=== PATIENT | female | born 1990 | race Caucasian/White ===

== ENCOUNTER → 2018-03-22 10:42 | Outpatient (CLI) | payer OTHER, SELFPAY ==
--- NOTE | 2018-03-22 11:02 | DI.US.S_ITS ---
Patient Name: RICKY RIDDLE date: 1990 Sex: F Attending Physician: Hugh Indications: Date: 03/22/2018 10:55 At the request of: KAI HOOPER Procedure: US breast RT limited ULTRASOUND OF RIGHT BREAST: 03/22/2018 CLINICAL: Patient reports a palpable breast lump but cannot remember where the lump is, per paster hat lining. No prior exams were available for comparison. Real-time and Doppler ultrasound of the right breast were performed. Campbell scale images of the real-time examination were reviewed. Per programs director, the patient is unable to localize where her palpable lump is within her right breast at the time of the exam. A limited survey of the right breast by ultrasound did not demonstrate any focal abnormality. IMPRESSION: NEGATIVE Per programs director, the patient is unable to localize where her palpable lump is within her right breast at the time of the exam. A limited survey of the right breast by ultrasound did not demonstrate any focal abnormality. While no sonographic findings of malignancy were identified, this does not represent a complete evaluation of the right breast. Clinical follow-up recommended for management of the patient's reported symptoms. Consider breast MRI if there is continued clinical concern for breast pathology. The patient was advised to return for reevaluation if she notices anything grow or change in the future. Annual screening mammography beginning at age 40 recommended. This exam was interpreted at Station ID: [id number]. Electronically Signed By: Parker Wray M.D. ecl/:03/22/2018 19:44:31 letter sent: Clinical Evaluation Ultrasound BI-RADS: 1 Negative
== END ==
PROVIDERS: PCP Family Medicine; Visit Provider Family Medicine
DX: N63.10 Unspecified lump in the right breast, unspecified quadrant (principal)
CPT/HCPCS: 76642

== ENCOUNTER → 2018-10-03 07:39 | Outpatient (CLI) | payer OTHER, SELFPAY ==
--- NOTE | 2018-10-03 | DI.US.S_ITS ---
PROCEDURE: US OB <= 14 WEEKS FETUS INDICATIONS: SIZE AND DATES OUTSIDE/PRIOR DATING DATA: Last menstrual period (LMP): 08/12/19. LMP-based estimated date of delivery (JULIA): 05/19/19. First dating scan (date and location): 10/03/18. Estimated date of delivery (JULIA) from first dating scan: 05/26/19. TECHNIQUE: Real-time scanning was performed of the fetus and maternal pelvic organs, with image documentation. Endovaginal scanning was also performed to better visualize the fetus and maternal ovaries. COMPARISON: None. FINDINGS: Embryo: [place]-rump length measures 7 mm corresponding to 6 weeks 3 days. Heart rate measures 124 beats per minute. Measurement variability in dating: +/- 4 weeks by LMP, +/- 7 days by mean sac diameter (use before 6 weeks gestation if crown-rump length not able to be measured), +/- 5 days by crown-rump length (up to 8 weeks 6 days gestation), +/- 7 days by crown-rump length (up to 13 weeks 6 days gestation). Maternal organs: Ovaries within normal limits, with a corpus luteal cyst measuring roughly 27 mm. Limited images through the kidneys demonstrate no hydronephrosis. IMPRESSION: 6 week 3 day single living IUP. Dictated by: Panda Barney [facility] Interpreted: Brian Vaughan MD on 10/03/2018 at 9:42 Approved by: Brian Vaughan M.D. on 10/04/2018 at 8:11
== END ==
PROVIDERS: PCP Family Medicine; Visit Provider Family Medicine
DX: Z34.91 Encounter for supervision of normal pregnancy, unspecified, first trimester (principal); Z3A.01 Less than 8 weeks gestation of pregnancy
CPT/HCPCS: 76801; 76817

== ENCOUNTER 2018-10-21 21:04 | Emergency (ER) | payer OTHER, MEDICAID, SELFPAY ==
[2018-10-21 21:31] VITALS: BP 113/80; PULSE 89; RESP 18; TEMP 37.1; O2SAT 99
--- NOTE | 2018-10-21 21:35 | DI.US.S_ITS ---
PROCEDURE: US OB <= 14 WEEKS FETUS INDICATIONS: RIGHT SIDE PAIN OUTSIDE/PRIOR DATING DATA: Last menstrual period (LMP): 08/12/19. LMP-based estimated date of delivery (JULIA): 05/19/19. First dating scan (date and location): 10/03/18. Estimated date of delivery (JULIA) from first dating scan: 05/26/19. TECHNIQUE: Real-time scanning was performed of the fetus and maternal pelvic organs, with image documentation. Endovaginal scanning was also performed to better visualize the fetus and maternal ovaries. COMPARISON: [facility], , OB <= 14 WEEKS FETUS, 10/03/2018, 8:03. FINDINGS: Embryo: There is a single intrauterine redemonstrated with a gestational sac, yolk sac, and pole. The common flank measures 2.7 cm corresponding to gestational age of 9 weeks 3 days. heart motion is demonstrated with a rate of 185 beats per minute. No perigestational fluid collections identified. Measurement variability in dating: +/- 4 weeks by LMP, +/- 7 days by mean sac diameter (use before 6 weeks gestation if crown-rump length not able to be measured), +/- 5 days by crown-rump length (up to 8 weeks 6 days gestation), +/- 7 days by crown-rump length (up to 13 weeks 6 days gestation). Maternal organs: The right ovary appears within normal limits. The left ovary was not visualized. Limited images through the kidneys demonstrate no hydronephrosis. IMPRESSION: 1. Single living intrauterine with a calculated gestational age of 9 weeks 3 days. 2. heart motion demonstrated with slightly elevated heart rate of 185 beats per minute. Dictated by: Hans Eden M.D. on 10/22/2018 at 13:23 Approved by: Hans Eden M.D. on 10/22/2018 at 13:26
--- NOTE | 2018-10-21 21:35 | DI.US.S_ITS ---
PROCEDURE: US ABDOMEN LIMITED INDICATIONS: RIGHT SIDE PAIN TECHNIQUE: Real-time focused scanning was performed of the right upper quadrant, with image documentation. COMPARISON: [facility], US, ABDOMEN COMPLETE, 04/22/2017, 4:56. FINDINGS: There is increased hepatic echogenicity compatible with steatosis. No definite focal hepatic lesions. Gallbladder surgically absent. The left common hepatic duct is normal in caliber measuring up to 6 mm. IMPRESSION: 1. Limited study demonstrates no definite biliary duct dilatation. 2. Increased hepatic echogenicity compatible with steatosis. Dictated by: Hans Eden M.D. on 10/22/2018 at 13:21 Approved by: Hans Eden M.D. on 10/22/2018 at 13:22
[2018-10-21 22:06] LABS: Add Manual Diff / Slide Review NO; Basophils Absolute Auto 100 /uL (0-100); Basophils Percent Auto 0.5 % (0-2); Eosinophils Absolute Auto 200 /uL (0-450); Eosinophils Percent Auto 1.2 % (2-4); Hematocrit 37.3 % (36-46); Hemoglobin 12.3 g/dL (12.0-16.0); Lymphocytes Absolute Auto 3400 /uL (1100-4500); Lymphocytes Percent Auto 26.5 % (25-40); Mean Corpuscular HGB Conc 32.9 % (30-36); Mean Corpuscular Hemoglobin 27.5 PG (26-34); Mean Corpuscular Volume 83.6 fL (80-100); Monocytes Absolute Auto 800 /uL (0-900); Monocytes Percent Auto 6.1 % (3-14); Neutrophils Absolute Auto 8500 /uL (1500-7000); Neutrophils Percent Auto 65.7 % (50-75); Platelet Count 275 X10^3/uL (150-400); Red Blood Cell Count 4.47 X10^6/uL (4.0-5.2); Red Cell Distribution Width 14.3 % (11.6-14.8); White Blood Cell Count 12.9 X10^3/uL (4.5-11.0)
[2018-10-21 22:13] LABS: Alanine Aminotransferase 23 IU/L (9-52); Albumin 4.5 g/dL (3.5-5.0); Albumin Globulin Ratio 1.2 (1.0-2.8); Alkaline Phosphatase 53 U/L (38-126); Aspartate Aminotransferase 21 IU/L (14-36); Bilirubin Total 0.3 mg/dL (0.2-1.3); Blood Urea Nitrogen 15 mg/dL (7-17); Calcium 9.5 mg/dL (8.4-10.2); Carbon Dioxide 22 mmol/L (22-32); Chloride 102 mmol/L (98-107); Estimated Glomerular Filt Rate > 60.0 mL/min (>60); Globulin 3.9 g/dL (1.7-4.1); Glucose 92 mg/dL (70-100); HEMOLYSIS < 15 (0-50); Lipase 67 U/L (23-300); Sodium 137 mmol/L (137-145); Total Protein 8.4 g/dL (6.3-8.2)
[2018-10-21 22:30] LABS: HCG Quantitative /Beta subunit 51704 mIU/mL
[2018-10-21 23:41] VITALS: PULSE 81; O2SAT 97
[2018-10-22 01:34] VITALS: BP 109/62; PULSE 85; RESP 16; O2SAT 97
--- NOTE | 2018-10-22 01:50 | ED.ABDPAIN ---
HPI - Abdominal Pain General Chief Complaint: Abdominal Pain Stated Complaint: 9wks preg right side abdominal pain Time Seen by Provider: 10/22/18 01:50 Source: patient Mode of arrival: ambulatory Limitations: no limitations History of Present Illness HPI narrative: The patient is approximately 9 weeks . She has previously undergone cholecystectomy. She developed right upper abdominal pain today. She has mild nausea, no emesis. She has been eating and drinking well. She has normal urine output, with no dysuria. She has no back pain, no fever or chills. She has no vaginal bleeding or vaginal discharge. She denies cough, chest discomfort, or fever or chills. Related Data Home Medications Medication Instructions Recorded Confirmed ondansetron HCl [Zofran] 4 mg PO Q4HP PRN #0 04/22/17 oxycodone-acetaminophen [Percocet] 1 - 2 tab PO Q4HP PRN #0 04/22/17 Previous Rx's Medication Instructions Recorded docusate sodium 250 mg PO QDAY #30 cap 03/05/17 ibuprofen 600 mg PO Q6HP PRN #60 tab 03/05/17 Allergies Allergy/AdvReac Type Severity Reaction Status Date / Time hydrocodone [HYDROCODONE] AdvReac Unknown GI UPSET Verified 10/21/18 21:35 Review of Systems Review of Systems ROS Unobtainable: All systems reviewed & are unremarkable except as noted in HPI and below Constitutional Denies chills, Denies fever(s), Denies lethargy and Denies weakness Cardiovascular Denies chest pain, Denies irregular heart rhythm, Denies lightheadedness, Denies palpitations, Denies dyspnea, Denies dyspnea on exertion and Denies orthopnea Respiratory Denies cough, Denies dyspnea, Denies dyspnea on exertion and Denies wheezing Gastrointestinal Gastrointestinal: Reports abdominal pain ( Right upper quadrant), Denies change in bowel habits, Denies diarrhea, Denies nausea and Denies vomiting Genitourinary Denies dysuria Musculoskeletal Denies back pain Integumentary/Breasts Denies rash Neurologic Denies focal weakness and Denies weakness Endocrine Denies palpitations Allergic/Immunologic Denies wheezing PFSH Medical History No chronic problems (Acute) Surgical History Status post cholecystectomy (Acute) Social History Smoking Status: Never smoker Social History Smoking Status: Never smoker Exam Initial Vital Signs Initial Vital Signs: Vital Signs Temperature 98.8 F 10/21/18 21:31 Pulse Rate 89 10/21/18 21:31 Respiratory Rate 18 10/21/18 21:31 Blood Pressure 113/80 10/21/18 21:31 Pulse Oximetry 99 10/21/18 21:31 Const General: cooperative and well developed Nutritional Appearance: well nourished Orientation: alert, awake, oriented x3 and not confused HENMT Face and sinus: normal facial exam Mouth: oral mucosae normal Chest Chest: No tenderness Resp Effort & Inspection: normal respiratory effort and able to speak in complete sentences Auscultation: clear to auscultation bilaterally, no rales, no rhonchi and no wheezes Cardio Rate: regular rate Rhythm: regular rhythm Heart Sounds: no click, no gallops, no murmurs and no rubs Pulses: normal peripheral pulses GI Inspection: non-distended Palpation: soft, no hepatosplenomegaly and tender ( RUQ tenderness without guarding or rebound. No palpable masses.) Auscultation: normal bowel sounds Back/Spine/Pelvis Back: No CVA tenderness Skin General: no rashes or lesions noted and No jaundice Neuro General: alert, oriented x3 and no focal motor deficits Speech: speech normal Extrem General: full ROM, no pedal edema and no calf tenderness Course Orders Ordered: ED Orders 10/21/18 21:35 US OB <= 14 weeks fetus Stat US abdomen limited Stat 10/21/18 21:49 ABO RH Type Stat Complete Blood Count AUTO DIFF Stat Comprehensive Metabolic Panel Stat HCG Quantitative Stat Lipase Stat Discontinued Medications Al Hydrox/Mg Hydrox/Simethicone 20 ml/ Lidocaine HCl 15 ml 0 ml PO NOW ONE Stop: 10/22/18 01:59 Vital Signs - 8 hr 10/21/18 21:31 10/21/18 23:41 10/22/18 01:34 Temperature 98.8 F Pulse Rate 89 81 85 Respiratory Rate 18 16 Blood Pressure 113/80 Blood Pressure [Right Arm] 109/62 Pulse Oximetry 99 97 97 MDM - Abdominal Pain Lab Data Result diagrams: 10/21/18 21:49 10/21/18 21:49 Lab Results 02/16/19 02/16/19 02/16/19 Range/Units 21:49 21:49 21:49 WBC 12.9 H (4.5-11.0) X10^3/uL RBC 4.47 (4.0-5.2) X10^6/uL Hgb 12.3 (12.0-16.0) g/dL Hct 37.3 (36-46) % MCV 83.6 (80-100) fL MCH 27.5 (26-34) PG MCHC 32.9 (30-36) % RDW 14.3 (11.6-14.8) % Plt Count 275 (150-400) X10^3/uL Neut % (Auto) 65.7 (50-75) % Lymph % (Auto) 26.5 (25-40) % [place] % (Auto) 6.1 (3-14) % Eos % (Auto) 1.2 L (2-4) % Baso % (Auto) 0.5 (0-2) % Neut # (Auto) 8500 H (3618-9129) /uL Lymph # (Auto) 3400 (8073-0138) /uL [place] # (Auto) 800 (0-900) /uL Eos # (Auto) 200 (0-450) /uL Baso # (Auto) 100 (0-100) /uL Sodium 137 (137-145) mmol/L Potassium 4.0 (3.4-5.1) mmol/L Chloride 102 (98-107) mmol/L Carbon Dioxide 22 (22-32) mmol/L BUN 15 (7-17) mg/dL Creatinine 0.60 (0.52-1.04) mg/dL Estimated GFR > 60.0 (>60) mL/min BUN/Creatinine Ratio 25.0 H (6-22) Glucose 92 (70-100) mg/dL Calcium 9.5 (8.4-10.2) mg/dL Total Bilirubin 0.3 (0.2-1.3) mg/dL AST 21 (14-36) IU/L ALT 23 (9-52) IU/L Alkaline Phosphatase 53 (38-126) U/L Total Protein 8.4 H (6.3-8.2) g/dL Albumin 4.5 (3.5-5.0) g/dL Globulin 3.9 (1.7-4.1) g/dL Albumin/Globulin Ratio 1.2 (1.0-2.8) Lipase 67 (23-300) U/L HCG, Quant 71575 mIU/mL Blood Type O Positive Point of care testing: Urine Dip Bedside Urine Glucose Negative Bedside Urine Bilirubin - Negative Bedside Urine Ketone +/- 5 Urine Specific [place] 1.025 Bedside Urine Occult Blood - Negative Bedside Urine pH 5.5 Bedside Urine Protein +/- 15 Bedside Urine Urobilinogen - Negative Bedside Urine Nitrite - Negative Bedside Urine Leukocytes - Negative Esterase Imaging Data Abdominal ultrasound:: Radiologist's impression: Hepatic steatosis, no acute findings. She is status post cholecystectomy. OB ultrasound: Radiologist's impression: single living intrauterine at 9 +3 weeks. Tachycardia rate 185. No emily-gestational bleeding. Normal blood flow to the right RA, the left ovary is not visualized. Discharge Plan Departure Patient Disposition: Home Clinical Impression: Abdominal pain during Qualifiers: Trimester: first trimester Qualified Code(s): O26.891 - Other specified related conditions, first trimester Instructions: Common Discomforts and Bodily Changes During Activity Restrictions/Additional Instructions: The baby is well on ultrasound. Ultrasound of the abdomen as well as blood studies are normal. He noted that the pain changes as you move around, I think this is a strain along her abdominal wall. Take Tylenol as needed for pain. If you are worse return the ER, recheck with her doctor next week if the discomfort persists. Prescriptions: No Action docusate sodium 250 MG capsule 250 mg PO QDAY Qty: 30 RF: 1 ibuprofen 600 MG tablet 600 mg PO Q6HP PRNQty: 60 RF: 1 oxycodone-acetaminophen [Percocet] 5 MG/325 MG tablet 1 - 2 tab PO Q4HP PRNQty: 0 RF: 0 ondansetron HCl [Zofran] 8 MG tablet 4 mg PO Q4HP PRNQty: 0 RF: 0 Referrals: Kamryn Reese MD [Primary Care Provider] -
[2018-10-22 03:26] VITALS: BP 112/64; PULSE 92; RESP 16; TEMP 36.9; O2SAT 98
== END 2018-10-22 03:27 | disposition home or self-care (01) ==
PROVIDERS: Emergency Provider Emergency Medicine; PCP Family Medicine
DX: O26.891 Other specified pregnancy related conditions, first trimester (principal); R10.9 Unspecified abdominal pain; Z3A.09 9 weeks gestation of pregnancy
CPT/HCPCS: 36415; 76705; 76801; 76817; 80053; 81003; 83690; 84702; 85025; 86900; 86901; 99283; 99284

== ENCOUNTER → 2019-01-05 15:03 | Outpatient (CLI) | payer OTHER, MEDICAID, SELFPAY ==
--- NOTE | 2019-01-05 | DI.US.S_ITS ---
PROCEDURE: US OB >= 14 WEEKS FETUS INDICATIONS: 20 WEEK ANATOMICAL SURVEY OUTSIDE/PRIOR DATING DATA: Last menstrual period (LMP): 08/12/19. LMP-based estimated date of delivery (JULIA): 05/19/19. First dating scan (date and location): 10/03/18, [facility]. Estimated date of delivery (JULIA) from first dating scan: 05/26/19. TECHNIQUE: Real-time scanning was performed of the fetus, with image documentation and biometric measurements. Endovaginal scanning: Not performed COMPARISON: None. FINDINGS: General: A single living intrauterine gestation is present. Presentation: Breech. Placenta: Placental position is posterior, without previa. Lower placental edge 2 cm or less from internal cervical os qualifies as low lying placenta. Amniotic fluid index: 11.8 cm, normal range is 5-24 cm. heart rate: 144 beats per minute. Maternal cervical canal: 4.2 cm long. Normal lower limit is 2.5 cm. biometrics: Biparietal diameter: 5.0 cm, 21 weeks, one day Head circumference: 19.0 cm, 21 weeks, 2 days Abdominal circumference: 16.8 cm, 21 weeks, 5 days Femur length: 3.3 cm, 20 weeks, 3 days Estimated gestational age from initial scan: 19 weeks, 6 days Composite gestational age from present scan: 21 weeks, 3 days Estimated weight and percentile: 403 g, 98 percentile Measurement variability for biometric dating: +/- 7 days from 14 weeks to 15 weeks 6 days gestation, +/- 10 days from 16 weeks to 21 weeks 6 days gestation, +/- 2 weeks from 22 weeks to 27 weeks 6 days gestation, +/- 3 weeks for 28 weeks gestation or later. weight reference: 4500 g or EFW >90/95% is considered macrosomia or large for gestational age. EFW <10% is small for gestational age. EFW 5% or less is considered intra-uterine growth restriction. Anatomic survey: Neuro: Ventricles are non-dilated at less than 10 mm. Cisterna magna is normal at 3-11 mm. Cerebellum is normal in size and morphology. Nuchal skin fold: Normal at less than 6 mm between 14-21 weeks gestational age. Face: Nose and lips, facial profile are normal. Spine: No evidence for spina bifida. Heart: 4-chambered heart is present, with normal ventricular outflow tracts. Diaphragm: Diaphragm is intact. Stomach: Left-sided stomach is present. Kidneys: No hydronephrosis. Normal is less than 5 mm in 2nd trimester, less than 7 mm in 3rd trimester. Cord: 3-vessel cord has orthotopic insertion. Bladder: Normal in size. Extremities: All 4 extremities identified. IMPRESSION: 1. Single live gestation with a composite gestational age of 21 weeks, 3 days which is concordant with dates by initial scan. 2. Estimated weight of 98 percentile. Developing macrosomia cannot be excluded. 3. No sonographic anatomic abnormalities. Of note, the lateral ventricle is the upper limits of normal for size. Dictated by: Trang Cueto M.D. on 01/05/2019 at 17:56 Approved by: Trang Cueto M.D. on 01/05/2019 at 18:01
== END ==
PROVIDERS: PCP Family Medicine; Visit Provider Family Medicine
DX: Z36.89 Encounter for other specified antenatal screening (principal); Z3A.21 21 weeks gestation of pregnancy
CPT/HCPCS: 76811

== ENCOUNTER → 2019-02-05 09:17 | Outpatient (CLI) | payer OTHER, MEDICAID, SELFPAY ==
--- NOTE | 2019-02-05 | DI.US.S_ITS ---
PROCEDURE: US OB LIMITED INDICATIONS: LOW LYING PLACENTA OUTSIDE/PRIOR DATING DATA: Last menstrual period (LMP): 08/12/19. LMP-based estimated date of delivery (JULIA): 05/19/19. First dating scan (date and location): 10/03/18. Estimated date of delivery (JULIA) from first dating scan: 05/26/19. TECHNIQUE: Real-time scanning was performed of the fetus, with image documentation and biometric measurements. Endovaginal scanning: No COMPARISON: [facility], [facility], 02/16/2017, 8:53. FINDINGS: General: A single living intrauterine gestation is present. Presentation: Breech. Placenta: Placental position is posterior. Persistent lower uterine segment contraction. Amniotic fluid index: 15.2cm, normal range is 5-24 cm. heart rate: 155 beats per minute. Maternal cervical canal: 3.9 cm long. Normal lower limit is 2.5 cm. biometrics: Biparietal diameter: 26 weeks 1 day Head circumference: 26 weeks 6 days Abdominal circumference: 27 weeks 3 days Femur length: 25 weeks 4 days Estimated gestational age from initial scan: 24 weeks 2 days Composite gestational age from present scan: 26 weeks 2 days Estimated weight and percentile: 958 g; slightly greater than the 95th percentile Measurement variability for biometric dating: +/- 7 days from 14 weeks to 15 weeks 6 days gestation, +/- 10 days from 16 weeks to 21 weeks 6 days gestation, +/- 2 weeks from 22 weeks to 27 weeks 6 days gestation, +/- 3 weeks for 28 weeks gestation or later. weight reference: 4500 g or EFW >90/95% is considered macrosomia or large for gestational age. EFW <10% is small for gestational age. EFW 5% or less is considered intra-uterine growth restriction. Other: Normal lateral ventricle measures 6.0 mm. Renal pelves prominent bilaterally measuring 5.0 mm. IMPRESSION: 1. Single living IUP redemonstrated and estimated weight is greater than the 95th percentile. Early developing macrosomia cannot be excluded and followup is recommended. 2. Normal diameter of the lateral ventricle measures 6.0 mm at 3. Mild renal pyelectasis. Followup recommended. 4. Persistent lower uterine segment contraction and the cervix as well as inferior margin of the placenta is not well seen. Followup recommended. Dictated by: Panda DOLL Interpreted: Brian Vaughan MD on 02/05/2019 at 10:29 Approved by: Brian Vaughan M.D. on 02/05/2019 at 14:46
== END ==
PROVIDERS: PCP Family Medicine; Visit Provider Family Medicine
DX: O44.42 Low lying placenta NOS or without hemorrhage, second trimester (principal); Z3A.26 26 weeks gestation of pregnancy
CPT/HCPCS: 76815

== ENCOUNTER 2019-04-08 22:23 | Outpatient (CLI) | payer OTHER, MEDICAID, SELFPAY ==
[2019-04-08 23:02] LABS: Bacteria Urine None Seen; RBC Urine None Seen (0-5/HPF)
[2019-04-08 23:03] LABS: Appearance Urine UA CLOUDY; Bilirubin Urine UA NEGATIVE (NEGATIVE); Color Urine UA YELLOW; Glucose Urine UA NEGATIVE (Negative); Ketones Urine UA NEGATIVE (NEGATIVE); Leukocyte Esterase Urine UA 2+ (NEGATIVE); Nitrite Urine UA NEGATIVE (Negative); Occult Blood Urine UA NEGATIVE (Negative); Protein Urine UA NEGATIVE (Negative); Specific Gravity Urine UA 1.015 (1.000-1.035); Urobilinogen Urine UA 0.2 E.U./dL (0.2); pH Urine UA 6.5 (4.5-8.0)
[2019-04-08 23:09] LABS: Amorphous Sediment Urine 2+; Culture Indicated Urine Cult Not Indicated; Squamous Epithelial Cell Urine 5-10 /HPF (0-5/HPF); WBC Urine 5-10/HPF (0-5/HPF)
== END 2019-04-08 23:43 | disposition home or self-care (01) ==
LOC: OB 04-12 12:03
PROVIDERS: PCP Family Medicine; Visit Provider Family Medicine
DX: O60.03 Preterm labor without delivery, third trimester (principal); Z3A.33 33 weeks gestation of pregnancy
CPT/HCPCS: 59025; 81001; 84112; 87077; 87086; 87147; G0378; G0379

== ENCOUNTER → 2019-04-27 12:35 | Outpatient (ROUT) | payer OTHER, MEDICAID, SELFPAY | PROVIDERS: PCP Family Medicine; Visit Provider Family Medicine | DX: Z34.80 Encounter for supervision of other normal pregnancy, unspecified trimester (principal) | CPT/HCPCS: 87081; 87147 ==

== ENCOUNTER → 2019-05-11 09:33 | Outpatient (CLI) | payer OTHER, MEDICAID, SELFPAY ==
--- NOTE | 2019-05-11 | DI.US.S_ITS ---
PROCEDURE: US OB LIMITED INDICATIONS: size greater than dates OUTSIDE/PRIOR DATING DATA: Last menstrual period (LMP): 08/12/19. LMP-based estimated date of delivery (JULIA): 05/19/19. First dating scan (date and location): 10/03/18. Estimated date of delivery (JULIA) from first dating scan: 05/26/2019. TECHNIQUE: Real-time scanning was performed of the fetus, with image documentation and biometric measurements. Endovaginal scanning: Not performed COMPARISON: [facility], OB LIMITED, 02/05/2019, 9:26. FINDINGS: General: A single living intrauterine gestation is present. Presentation: Vertex Placenta: Placental position is posterior, without previa. Lower placental edge 2 cm or less from internal cervical os qualifies as low lying placenta. Amniotic fluid index: 19 cm, normal range is 5-24 cm. the largest vertical fluid pocket measured 5.2 cm. heart rate: 157 beats per minute. Maternal cervical canal: Maternal cervical length was not able to be measured due to advanced gestational age in vertex presentation of the fetus. biometrics: Biparietal diameter: 10.0 cm correlating with 41 weeks and 0 days. Head circumference: 36.59 cm Abdominal circumference: 38.26 cm Femur length: 7.68 cm, correlating with 39 weeks and 2 days. Estimated gestational age from initial scan: not applicable. Composite gestational age from present scan: 40 weeks and 1 day. Estimated weight and percentile: 4475 g Other: There is mild scrotal edema with small bilateral hydroceles. There is also prominence of the right renal pelvis measuring approximately 8 mm. No len hydronephrosis. IMPRESSION: 1. Single living intrauterine gestation with estimated gestational age of approximately 40 weeks and 1 day. Estimated weight is 4475 g. weight reference: 4500 g or EFW >90/95% is considered macrosomia or large for gestational age. EFW <10% is small for gestational age. EFW 5% or less is considered intra-uterine growth restriction. 2. The 4 quadrant HERNAN measures within normal limits at 19 cm with the largest vertical fluid pocket measuring 5.2 cm. 3. Mild prominence of the left renal pelvis measuring 8 mm in maximum AP dimension. No hydronephrosis. Recommend followup renal ultrasound sometime between 48 hours after to one month of age. A second ultrasound to be considered between 1-6 months of age. 4. Mild scrotal edema with small bilateral hydroceles. Dictated by: Vinny Sheridan M.D. on 05/11/2019 at 10:28 Approved by: Vinny Sheridan M.D. on 05/11/2019 at 10:47
== END ==
PROVIDERS: PCP Family Medicine; Visit Provider Family Medicine
DX: O36.63X0 Maternal care for excessive fetal growth, third trimester, not applicable or unspecified (principal); Z3A.40 40 weeks gestation of pregnancy
CPT/HCPCS: 76815

== ENCOUNTER → 2019-05-16 19:11 | Outpatient (ROUT) | payer OTHER, MEDICAID, SELFPAY | PROVIDERS: PCP Family Medicine; Visit Provider Family Medicine | DX: N39.0 Urinary tract infection, site not specified (principal) | CPT/HCPCS: 87086 ==

== ENCOUNTER 2019-05-17 00:18 | Observation (INO) | payer OTHER, MEDICAID, SELFPAY | END 2019-05-17 02:35 | disposition home or self-care (01) | LOC: LABOR 00:21 | PROVIDERS: Admitting Provider Family Medicine; PCP Family Medicine; Visit Provider Family Medicine | DX: O47.1 False labor at or after 37 completed weeks of gestation (principal); Z3A.38 38 weeks gestation of pregnancy | CPT/HCPCS: 59025; 59050; G0378; G0379 ==

== ENCOUNTER 2019-05-21 06:38 | Inpatient (IN) | payer OTHER, MEDICAID, SELFPAY ==
[2019-05-21] MEDS: PENICILLIN G POTASSIUM 5,000,000 UNIT in DEXTROSE 5% IN WATER 250 ML IV (07:45)
[2019-05-21 07:47] LABS: Add Manual Diff / Slide Review NO; Basophils Absolute Auto 0 /uL (0-100); Basophils Percent Auto 0.4 % (0-2); Eosinophils Absolute Auto 100 /uL (0-450); Eosinophils Percent Auto 0.9 % (2-4); Hematocrit 34.5 % (36-46); Hemoglobin 11.4 g/dL (12.0-16.0); Lymphocytes Absolute Auto 2000 /uL (1100-4500); Lymphocytes Percent Auto 26.4 % (25-40); Mean Corpuscular HGB Conc 33.1 % (30-36); Mean Corpuscular Volume 87.4 fL (80-100); Monocytes Absolute Auto 600 /uL (0-900); Monocytes Percent Auto 8.1 % (3-14); Neutrophils Absolute Auto 4700 /uL (1500-7000); Neutrophils Percent Auto 64.2 % (50-75); Platelet Count 180 X10^3/uL (150-400); Red Blood Cell Count 3.95 X10^6/uL (4.0-5.2); Red Cell Distribution Width 15.6 % (11.6-14.8); White Blood Cell Count 7.4 X10^3/uL (4.5-11.0)
[2019-05-21] MEDS: LACTATED RINGERS 1,000 ML 100 ML IV (08:11)
[2019-05-21] MEDS: OXYTOCIN PREMIX 30 UNIT/500 ML PLAST..BAG IV (08:13)
[2019-05-21] MEDS: CALCIUM CARBONATE 500 MG TAB 1000 MG PO (09:08)
[2019-05-21 09:44] VITALS: BP 117/79
[2019-05-21] MEDS: PENICILLIN G POTASSIUM 3,000,000 UNIT/50 ML FROZ.PIGGY 100 UNIT IV (12:04)
--- NOTE | 2019-05-21 13:55 | PM.OBPRVD ---
Labor & Delivery Delivery date: 05/21/19 Intrapartal events: Precipitous Labor < 3 hours Induction method: per pitocin protocol Delivery augmentation: rupture of membranes Delivery monitor: external FHT and external uterine Route of delivery: Episiotomy description: Midline L&D Laceration Description: Perineal - 1st Degree Delivery repair: chromic Estimated blood loss (mL): 300 Anesthesia type: Epidural Complications: delivered before epidural effective Narrative: Identifying data: 29-year-old at 39 and 2 7 weeks estimated gestational age based on a 7 week ultrasound and fairly accurate LMP presents to Labor and delivery for induction due to macrosomia and term gestation. Suspected over 10 lb baby on ultrasound 10 days ago. Otherwise unremarkable other than intermittent uterine contractions over the last month that have prompted several visits to labor and delivery. GBS found in urine and so patient will be treated but vaginal GBS negative. Status post Tdap, O-positive, rubella immune. Patient on thyroid medication. Stage I lasted 1 hour and 9 minutes Patient presented to labor and delivery and was felt to be 4 cm 80% effaced and -1 to -2 station. Pitocin was begun. External heart monitor was used throughout stage I and showed baseline in the 130s to 140s with accelerations and moderate variability. Category 1 tracing throughout stage I intermittently times difficult to monitor baby. But these were brief. No decelerations only occasional variable deceleration. External tocometer use and maximum Pitocin was 17 milliunits. Contractions were every 2-4 minutes and regular. Artificial rupture membranes was performed at 11:53 a.m. and very thin meconium obtained. Patient had rapidly increasing intensity of uterine contractions and the anesthesiologist was called at 12:40 p.m.. Patient was checked at 12:45 p.m. and the nurse felt that she was complete but when I 1st checked her at 1:00 a.m. she had anterior lip. She has stage II lasted 2 minutes In the at 102 she was complete and began pushing at 1:03 p.m.. The epidural was finished at 1:00 p.m. that is when the test dosing was given but unfortunately was not effective during the delivery. She pushed for approximately 2 minutes and there was a tight introitus was very small and midline episiotomy, first-degree was performed. The head was delivered and patient new portion vigorously and anterior and posterior shoulders delivered really at the same time of the head. Baby was vigorous at and placed on mom's chest. Baby was in OA presentation. The cord was clamped x2 and cut. Stage III lasted 3 minutes normal spontaneous vaginal delivery of a large intact mildly calcified placenta. There is a central cord insertion. There was a 3 vessel cord. 10 minutes use of Pitocin was given IM and the remainder of the Pitocin in the IV bag was run in. There was 300 cc of estimated blood loss. There is no evidence of cervical or vaginal lacerations and no periurethral lacerations. The small 1st degree episiotomy was repaired with 3 0 chromic. At the time of this dictation both mom and baby are in stable condition. Apgars were 8 at 1 minute and 9 at 5 minutes
--- NOTE | 2019-05-21 14:06 | PM.OBHP.1 ---
OB HPI History of Present Condition Chief complaint: evaluation of labor/induction Narrative: Jayleen Shaw is a 29 year old female at 3927 weeks estimated gestational age with EDC based on fairly accurate LMP and a 7 week ultrasound giving a 921 2019 EDC. Patient is brought to Labor and delivery for induction due to macrosomia and prodrome labor. She has had irregular uterine contractions really intermittently over the last month and has been changing her cervix. At the time of admission she is 3-4 cm 80% effaced and -1 station which is a change from my exam on Tuesday of last week. The patient has not had any leaking of fluid and has not had any change in discharge or vaginal bleeding. She has had intermittent headaches intermittent swelling and no significant lower extremity edema. Baby has been active. Past OB history: 1. 12/22/2014 at 39 weeks gestation in normal spontaneous vaginal delivery of a viable female infant named when weighing 8 lb 11 oz with epidural at [facility] after 12 hours of labor 2. 03/04/2017 at 40 and 6 7 weeks estimated gestational age in normal spontaneous vaginal delivery of a viable female infant named Samaria weighing 9 lb 4 oz with epidural at [facility] after 8 hours of labor. Past medical history: Hypothyroidism Cholelithiasis Fibrocystic breast disease Anemia Obesity Past surgical history: Cholecystectomy, laparoscopic, Dr. moyer on, 04/22/2017 [facility] surgery Health related behavior: Patient does not smoke or use illicit drugs and does not use alcohol Social history: Patient is and lives in [place] with her and 2 daughters. Family history: Grandmother with breast cancer care: Serology O positive, antibody screen negative, rubella immune and varicella immune. HIV, hepatitis-B, hepatitis-C all negative. GC and chlamydia negative. VDRL negative patient was found to have group B beta strep in her urine and although her genital culture was negative for group B beta strep. Quad screen was negative. Glucose tolerance test was 10:00 a.m. patient received her Tdap 03/26/2019 Patient gained about 15 lb during her . She had approximately 12 visits. Her blood pressures remain 108-130 6/70 2-90. We did do preeclamptic labs which were negative. She had intermittent uterine contractions for the last month of . There was suspected pelviectasis and patient was sent for a level 2 ultrasound and they did not feel this was a problem but that there was macrosomia. Evaluation Evaluation Laboratory results: Laboratory Tests 05/21/19 05/21/19 07:20 07:20 WBC 7.4 RBC 3.95 L Hgb 11.4 L Hct 34.5 L MCV 87.4 MCH 29.0 MCHC 33.1 RDW 15.6 H Plt Count 180 Neut % (Auto) 64.2 Lymph % (Auto) 26.4 [place] % (Auto) 8.1 Eos % (Auto) 0.9 L Baso % (Auto) 0.4 Neut # (Auto) 4700 Lymph # (Auto) 2000 [place] # (Auto) 600 Eos # (Auto) 100 Baso # (Auto) 0 Blood Type O Positive Antibody Screen Negative [facility] Medical History (Updated 11/06/18 @ 00:00 by ) No chronic problems (Acute) Surgical History (Updated 10/22/18 @ 02:01 by Yemi Sanchez MD) Status post cholecystectomy (Acute) Social History Smoking Status: Never smoker Social History Smoking Status: Never smoker Meds Home Medications and Allergies Home Medications Medication Instructions Recorded Confirmed Type levothyroxine [Levoxyl] 100 mcg PO DAILY 05/17/19 05/21/19 History liothyronine [Cytomel] 25 mcg PO DAILY 05/17/19 05/21/19 History Review of Systems Review of Systems ROS Unobtainable: All systems reviewed & are unremarkable except as noted in HPI and below Exam Vital Signs (past 8 hours): - 05/21/19 09:44 Blood Pressure 117/79 Narrative Exam Narrative: Afebrile vital signs are stable HEENT: Unremarkable Neck: Supple without adenopathy Chest: Clear to auscultation without wheezes rhonchi or crackles Cor: Regular rate and rhythm without any murmur Abdomen: Gravid, vertex, estimated weight 10 lb Extremities: No significant edema Cervical exam 4-5 cm, 80%, mid position, on -1, soft heart tones baseline 130 to 140s with accelerations and moderate variability without decelerations Uterine contractions every 2-4 minutes Skin no rashes Objective Labs Result Diagrams: 05/21/19 07:20 Labs: Laboratory Results - last 24 hr 05/21/19 05/21/19 07:20 07:20 WBC 7.4 RBC 3.95 L Hgb 11.4 L Hct 34.5 L MCV 87.4 MCH 29.0 MCHC 33.1 RDW 15.6 H Plt Count 180 Neut % (Auto) 64.2 Lymph % (Auto) 26.4 [place] % (Auto) 8.1 Eos % (Auto) 0.9 L Baso % (Auto) 0.4 Neut # (Auto) 4700 Lymph # (Auto) 2000 [place] # (Auto) 600 Eos # (Auto) 100 Baso # (Auto) 0 Blood Type O Positive Antibody Screen Negative Assessment and Plan Assessment and Plan Assessment and Plan narrative: 29-year-old at 39 and 2 7 weeks estimated gestational age with suspected macrosomia and prodromal labor Pitocin has been begun. Will perform artificial rupture of membranes 2 hours after 1st dose of antibiotic has been given. IV penicillin per protocol for GBS positive status. Epidural if requested. Discuss my concern for possible rapid labor and timing for epidural and questions answered. Patient prefers to go without epidural. O positive, rubella immune, status post Tdap, glucose tolerance test 108 Hypothyroidism Plan: Continue outpatient thyroid medication
[2019-05-21] MEDS: IBUPROFEN 600 MG TABLET PO ×2 (17:07→22:57)
[2019-05-22] MEDS: HYDROCODONE/ACET 5/325 TABLET 1 TAB PO ×3 (02:31→13:56)
[2019-05-22] MEDS: IBUPROFEN 600 MG TABLET PO ×2 (05:11→10:43)
[2019-05-22 05:52] LABS: Add Manual Diff / Slide Review NO; Basophils Absolute Auto 0 /uL (0-100); Basophils Percent Auto 0.1 % (0-2); Eosinophils Absolute Auto 100 /uL (0-450); Hematocrit 28.5 % (36-46); Hemoglobin 9.9 g/dL (12.0-16.0); Lymphocytes Absolute Auto 2800 /uL (1100-4500); Lymphocytes Percent Auto 30.6 % (25-40); Mean Corpuscular HGB Conc 34.7 % (30-36); Mean Corpuscular Hemoglobin 29.8 PG (26-34); Monocytes Absolute Auto 800 /uL (0-900); Monocytes Percent Auto 8.8 % (3-14); Neutrophils Absolute Auto 5400 /uL (1500-7000); Neutrophils Percent Auto 59.5 % (50-75); Platelet Count 149 X10^3/uL (150-400); Red Blood Cell Count 3.31 X10^6/uL (4.0-5.2); Red Cell Distribution Width 15.4 % (11.6-14.8); White Blood Cell Count 9.2 X10^3/uL (4.5-11.0)
[2019-05-22] MEDS: DOCUSATE 250 MG CAPSULE PO (09:19)
--- NOTE | 2019-05-22 13:25 | PM.DS.1 ---
History of Present Illness History of Present Illness Chief complaint: evaluation of labor/induction Discharge Providers Provider Date of admission: 05/21/19 06:38 Discharge Date: 05/22/19 Primary care physician: Kamryn Reese MD Consults: 05/21/19 13:41 Consult to [employer] Routine Comment: Discharge provider: Kamryn Reese MD Summary Hospital Course Discharge Diagnosis: Status post normal spontaneous vaginal delivery without complications Epidural GBS in urine, treated with IV penicillin x2 doses Hospital Course: Patient admitted to the hospital and underwent induction for macrosomia at term and prodrome labor with Pitocin and artificial rupture of membranes and had a very rapid delivery. There were no complications. There were no complications. Patient did receive 1 Vicodin to help with pain in addition to ibuprofen. Patient was urinating and passing flatus at the time of discharge. Breast-feeding was going excellently. Status at Discharge Cognitive/behavioral status at discharge: oriented Functional status at discharge: independent ambulation Overall status at discharge: patient is progressing back to baseline Time Spent with Patient Time spent: Less than 30 minutes Exam Vital Signs (past 8 hours): Afebrile vital signs are stable Chest clear to auscultation bilaterally Cor: Regular rate and rhythm without murmur Abdomen: Positive bowel sounds, soft, nontender, nondistended, uterus firm and well below the umbilicus and nontender Extremities no edema, pulses intact Objective Labs Result Diagrams: 05/22/19 05:15 Labs: Laboratory Results - last 24 hr 05/22/19 05:15 WBC 9.2 RBC 3.31 L Hgb 9.9 L Hct 28.5 L MCV 86.0 MCH 29.8 MCHC 34.7 RDW 15.4 H Plt Count 149 L Neut % (Auto) 59.5 Lymph % (Auto) 30.6 [place] % (Auto) 8.8 Eos % (Auto) 1.0 L Baso % (Auto) 0.1 Neut # (Auto) 5400 Lymph # (Auto) 2800 [place] # (Auto) 800 Eos # (Auto) 100 Baso # (Auto) 0 Discharge Plan Discharge Plan Patient Disposition: Home Discharge Med Rec/Prescriptions Prescriptions: New docusate sodium 250 mg Capsule 250 mg PO DAILY Qty: 60 RF: 0 hydrocodone-acetaminophen 5-325 mg Tablet 1 tab PO Q4HR PRN (Reason: Pain, Moderate (4-6)) Qty: 20 RF: 0 ibuprofen 600 mg Tablet 600 mg PO Q6HR PRN (Reason: Pain, Mild (1-3)) Qty: 60 RF: 0 Continued levothyroxine [Levoxyl] 100 mcg tablet 100 mcg PO DAILY RF: 0 liothyronine [Cytomel] 25 mcg tablet 25 mcg PO DAILY RF: 0 Follow up/Referrals: Kamryn Reese MD [Primary Care Provider] - Provider Discharge Instructions Diet: Diet as Tolerated Activity: pelvic rest Discharge Data Primary Care Provider: Kamryn Reese
== END 2019-05-22 16:05 | disposition home or self-care (01) | DRG 560 ==
PROVIDERS: Admitting Provider Family Medicine; PCP Family Medicine; Visit Provider Family Medicine
DX: O66.2 Obstructed labor due to unusually large fetus (principal); O99.824 Streptococcus B carrier state complicating childbirth; O99.284 Endocrine, nutritional and metabolic diseases complicating childbirth; E03.9 Hypothyroidism, unspecified; Z37.0 Single live birth; Z3A.39 39 weeks gestation of pregnancy; O77.0 Labor and delivery complicated by meconium in amniotic fluid
CPT/HCPCS: 01967; 36415; 59050; 85025; 86850; 86900; 86901; G0379; J2540; J2590

== ENCOUNTER → 2021-01-14 15:40 | Outpatient (CLI) | payer OTHER, MEDICAID, SELFPAY ==
--- NOTE | 2021-01-14 | DI.RAD.S_ITS ---
PROCEDURE: XR LUMBAR SPINE 2-3V INDICATIONS: LUMBAR RADICULOPATHY TECHNIQUE: 3 views of the lumbar spine were acquired. COMPARISON: [facility], , -SPINE 2-3 VIEWS, 04/28/2016, 12:38. FINDINGS: Bones: 5 [id number] vertebrae are present. There is normal bony alignment. No vertebral body compression fractures. No suspicious bony lesions. Soft tissues: Overlying bowel gas pattern is normal. No suspicious soft tissue calcifications. IMPRESSION: Normal for age, source of current radicular symptoms is not seen. Dictated by: Brian Vaughan M.D. on 01/14/2021 at 16:43 Approved by: Brian Vaughan M.D. on 01/14/2021 at 16:44
== END ==
PROVIDERS: PCP Family Medicine; Referring Provider Family Medicine; Visit Provider Family Medicine
DX: M54.16 Radiculopathy, lumbar region (principal)
CPT/HCPCS: 72100

== ENCOUNTER → 2022-02-10 11:09 | Outpatient (CLI) | payer OTHER, MEDICAID, SELFPAY ==
--- NOTE | 2022-02-10 11:12 | DI.US.S_ITS ---
PROCEDURE: US OB LIMITED INDICATIONS: Encounter for supervision of normal OUTSIDE/PRIOR DATING DATA: Last menstrual period (LMP): 10/16/2021 LMP-based estimated date of delivery (JULIA): 07/23/2022 First dating scan (date and location): 02/10/2022 Estimated date of delivery (JULIA) from first dating scan: 07/22/2022 The calculations are made using the clinical JULIA of 07/23/2022 TECHNIQUE: Real-time scanning was performed of the fetus, with image documentation and biometric measurements. Endovaginal scanning: Not performed. COMPARISON: None. FINDINGS: General: A single living intrauterine gestation is present. Presentation: Variable Placenta: Placental position is posterior. A lower uterine segment contraction is present. No definite placenta previa. Amniotic fluid index: 10.1 cm, normal range is 5-24 cm. Single deepest vertical pocket is 3.4 cm. heart rate: 149 beats per minute. Maternal cervical canal: 4.1 cm long. Normal lower limit is 2.5 cm. biometrics: Biparietal diameter: 3.6 cm, 17 weeks 1 day Head circumference: 13.5 cm, 17 weeks 0 days Abdominal circumference: 10.6 cm, 16 weeks 4 days Femur length: 2.3 cm, 16 weeks 5 days Clinically estimated gestational age: 16 weeks 5 days Composite gestational age from present scan: 16 weeks 6 days Estimated weight and percentile: 166 g, 42nd percentile for gestational age Other: Not applicable. Anatomic survey not performed due to gestational age. IMPRESSION: 1. Single live intrauterine with estimated gestational age of 16 weeks 6 days, giving an ultrasound JULIA of 07/22/2022. 2. Recommend follow-up anatomic survey at 18 to 20 weeks gestational age. We strive to produce accurate, complete, and clear reports of imaging services. To assist us in improving patient care, this report was composed using standard report templates and voice recognition software. Therefore, it may contain abnormal punctuation, insertions and/or omissions. Occasional wrong-word or sound-alike substitutions may occur. Though we review the report and make efforts to correct it, we do recommend that the report be read carefully in proper context to recognize any text inaccuracies. Dictated by: Siddharth Burns M.D. on 02/10/2022 at 13:45 Approved by: Siddharth Burns M.D. on 02/10/2022 at 13:50
== END ==
PROVIDERS: PCP Family Medicine; Referring Provider Registered Nurse; Visit Provider Registered Nurse
DX: O26.851 Spotting complicating pregnancy, first trimester (principal); Z3A.16 16 weeks gestation of pregnancy
CPT/HCPCS: 76815

== ENCOUNTER → 2022-03-05 14:04 | Outpatient (CLI) | payer OTHER, MEDICAID, SELFPAY ==
--- NOTE | 2022-03-05 | DI.US.S_ITS ---
PROCEDURE: US OB >= 14 WEEKS FETUS INDICATIONS: 20WK ANATOMY SCAN OUTSIDE/PRIOR DATING DATA: Last menstrual period (LMP): 10/16/2021. LMP-based estimated date of delivery (JULIA): 07/23/2022. First dating scan (date and location): 16 weeks 6 days. Estimated date of delivery (JULIA) from first dating scan: 02/10/2022. The calculations are made using the ultrasound JULIA of 07/22/2022. TECHNIQUE: Real-time scanning was performed of the fetus, with image documentation and biometric measurements. COMPARISON: [facility], OB >= 14 WEEKS FETUS, 01/05/2019, 15:29. FINDINGS: General: A single living intrauterine gestation is present. Presentation: Variable. Placenta: Placental position is posterior , without previa. Amniotic fluid index: 15.4 cm, normal range is 5-24 cm. heart rate: 145 beats per minute. Maternal cervical canal: 4.3 cm long. Normal lower limit is 2.5 cm. biometrics: Biparietal diameter: 4.7 cm. 20 weeks 0 days. Head circumference: 17.3 cm. 19 weeks 6 days. Abdominal circumference: 15.1 cm. 20 weeks 2 days. Femur length: 3.5 cm. 21 weeks 0 days. Composite gestational age from initial scan: 20 weeks 1 day Composite gestational age from present scan: 20 weeks 2 days Estimated weight and percentile: 359 g. 67th percentile. Anatomic survey: Neuro: Not visualized Nuchal skin fold: Not visualized Face: Nose and lips, facial profile are normal. Spine: No evidence for spina bifida. Heart: 4-chambered heart is present, with normal ventricular outflow tracts. Diaphragm: Diaphragm is intact. Stomach: Left-sided stomach is present. Kidneys: No hydronephrosis. Normal is less than 5 mm in 2nd trimester, less than 7 mm in 3rd trimester. Cord: 3-vessel cord has orthotopic insertion. Bladder: Normal in size. Extremities: All 4 extremities identified. IMPRESSION: 1. Visualized anatomy is normal. The ventricles, cisterna magna, and nuchal region were not visualized and can not be visualized on subsequent exam. 2. Estimated gestational age 20 weeks 1 day from initial scan. We strive to produce accurate, complete, and clear reports of imaging services. To assist us in improving patient care, this report was composed using standard report templates and voice recognition software. Therefore, it may contain abnormal punctuation, insertions and/or omissions. Occasional wrong-word or sound-alike substitutions may occur. Though we review the report and make efforts to correct it, we do recommend that the report be read carefully in proper context to recognize any text inaccuracies. Dictated by: Gaudencio Swenson M.D. on 03/05/2022 at 16:33 Approved by: Gaudencio Swenson M.D. on 03/05/2022 at 16:37
== END ==
PROVIDERS: PCP Family Medicine; Referring Provider Midwife; Visit Provider Midwife
DX: Z36.89 Encounter for other specified antenatal screening (principal); Z3A.20 20 weeks gestation of pregnancy
CPT/HCPCS: 76811

== ENCOUNTER → 2022-04-09 15:41 | Outpatient (CLI) | payer OTHER, MEDICAID, SELFPAY ==
--- NOTE | 2022-04-09 | DI.US.S_ITS ---
PROCEDURE: US OB FOLLOW UP INDICATIONS: FOLLOW UP TO VISUALIZE NUERO AND NUCHAL FOLD OUTSIDE/PRIOR DATING DATA: Last menstrual period (LMP): 10/16/2021 LMP-based estimated date of delivery (JULIA): 07/23/2022 First dating scan (date and location): 02/10/2022. Estimated date of delivery (JULIA) from first dating scan: 07/22/2022. The calculations are made using the study generated JULIA of 07/22/2022. TECHNIQUE: Real-time scanning was performed of the fetus, with image documentation and biometric measurements. Endovaginal scanning: Not indicated COMPARISON: None. FINDINGS: General: A single living intrauterine gestation is present. Presentation: Vertex Placenta: Placental position is posterior, without previa. Amniotic fluid index: 18 cm, normal range is 5-24 cm. Single deepest vertical pocket is 5.7 cm. heart rate: 147 beats per minute. Maternal cervical canal: 5.1 cm long. Normal lower limit is 2.5 cm. biometrics: Biparietal diameter: 6.46 cm, 26 weeks, 1 day Head circumference: 23.96 cm, 26 weeks, 0 day. Abdominal circumference: 21.03 cm, 25 weeks, 4 days. Femur length: 4.59 cm, 25 weeks, 2 days. Clinically estimated gestational age: 25 weeks, 0 day. Composite gestational age from present scan: 25 weeks, 5 days. Estimated weight and percentile: 820 grams, 64 percent Other: Neural structures are fairly well visualized on the current study and show no gross abnormality. Nuchal fold is normal in thickness measures 3.8 mm. IMPRESSION: 1. Single live intrauterine gestation with fetus in cephalic presentation. heart rate is 147 beats per minute. Normal amount of amniotic fluid. Normal growth. Estimated weight is at 64 percent. 2. Slightly limited visual bili of anatomy due to patient's body habitus. brain and nuchal fold are fairly well visualized and are within normal limits. We strive to produce accurate, complete, and clear reports of imaging services. To assist us in improving patient care, this report was composed using standard report templates and voice recognition software. Therefore, it may contain abnormal punctuation, insertions and/or omissions. Occasional wrong-word or sound-alike substitutions may occur. Though we review the report and make efforts to correct it, we do recommend that the report be read carefully in proper context to recognize any text inaccuracies. Dictated by: Davy Steen M.D. on 04/09/2022 at 17:40 Approved by: Davy Steen M.D. on 04/09/2022 at 17:44
== END ==
PROVIDERS: PCP Family Medicine; Referring Provider Midwife; Visit Provider Midwife
DX: Z36.2 Encounter for other antenatal screening follow-up (principal); Z3A.25 25 weeks gestation of pregnancy
CPT/HCPCS: 76816

== ENCOUNTER 2022-07-08 11:41 | Outpatient (CLI) | payer OTHER, MEDICAID, SELFPAY ==
[2022-07-08 12:48] LABS: Add Manual Diff / Slide Review NO; Basophils Absolute Auto 0 /uL (0-100); Basophils Percent Auto 0.3 % (0-2); Eosinophils Absolute Auto 100 /uL (0-450); Eosinophils Percent Auto 1.3 % (2-4); Hematocrit 33.7 % (36-46); Hemoglobin 11.5 g/dL (12.0-16.0); Lymphocytes Absolute Auto 1800 /uL (1100-4500); Lymphocytes Percent Auto 21.1 % (25-40); Mean Corpuscular Hemoglobin 29.2 PG (26-34); Mean Corpuscular Volume 85.8 fL (80-100); Monocytes Absolute Auto 600 /uL (0-900); Monocytes Percent Auto 7.4 % (3-14); Neutrophils Absolute Auto 5900 /uL (1500-7000); Neutrophils Percent Auto 69.9 % (50-75); Platelet Count 240 X10^3/uL (150-400); Red Blood Cell Count 3.93 X10^6/uL (4.0-5.2); Red Cell Distribution Width 14.7 % (11.6-14.8); White Blood Cell Count 8.5 X10^3/uL (4.5-11.0)
[2022-07-08 12:58] LABS: Alanine Aminotransferase 14 IU/L (<35); Albumin 3.7 g/dL (3.5-5.0); Alkaline Phosphatase 83 U/L (38-126); Aspartate Aminotransferase 13 IU/L (14-36); Bilirubin Total 0.3 mg/dL (0.2-1.3); Bilirubin Unconjugated 0.4 mg/dL (0.0-1.1); Globulin 3.7 g/dL (1.7-4.1); HEMOLYSIS < 15 (0-50); Total Protein 7.4 g/dL (6.3-8.2); Uric Acid 3.8 mg/dL (2.5-6.2)
[2022-07-08 14:46] LABS: Creatinine Urine Random 114.1 mg/dL; Protein (Total) Urine Random 20 mg/dL (0-12); Protein Creatinine Ratio Urine 0.17 GRAM/24H
--- NOTE | 2022-07-08 18:44 | P.TNLD_ITS ---
Visit Information Visit Information Date of evaluation: 07/08/22 Primary OB Provider: Eliza Au On-call OB Provider: Jose Rafael Blanco Reason for Evaluation: Yes other Comments/Additional reasons for admission: Jayleen is a 32 yo at 37+6 weeks EGA referred from her CNM Eliza Au due to elevated BP's today. Patient has not previously had elevated BP's with this or her three prior pregnancies. She and her have to this point been planning a home with the support of her supervisor intermediates. The patient denies visual changes, H/A, or RUQ pain and her baby is active. She also denies contractions, bleeding, leakage of fluid PV, or change in her vaginal discharge. Vital Signs Vital Signs: BP monitored for > 2.5 hrs. w/ BP's q 15 minutes. No systolic BP noted above 120 mmHg (Max 119) and the highest diastolic recorded was 77 mmHg. MAP's ranged between 80 mmHg and 88 mmHg. [facility] Medical History (Updated 07/08/22 @ 18:54 by Jose Rafael Blanco MD) No chronic problems Surgical History (Updated 10/22/18 @ 02:01 by Yemi Sanchez MD) Status post cholecystectomy Social History Smoking Status: Never smoker Review of Systems Review of Systems Narrative: Problem-specific ROS positives included in HPI Exam Vital Signs (past 8 hours): BP monitored for > 2.5 hrs. w/ BP's q 15 minutes. No systolic BP noted above 120 mmHg (Max 119) and the highest diastolic recorded was 77 mmHg. MAP's ranged between 80 mmHg and 88 mmHg. Const General: cooperative and comfortable Nutritional Appearance: overweight Orientation: alert, awake and oriented x3 HENMT Head: normal to inspection, normocephalic and atraumatic Eyes General: appearance normal, both eyes and all related structures Resp Effort & Inspection: normal respiratory effort and able to speak in complete sentences Auscultation: clear to auscultation bilaterally Cardio Rate: regular rate Rhythm: regular rhythm Heart Sounds: S1 normal, S2 normal and no murmurs GI Inspection: normal to inspection and other (Gravid, term) Uterus Location (Fundal Height): 38 Estimated Weight (lbs): 8 Extrem Right lower extremity: normal to inspection Psych Appearance: grossly normal Mental Status: mental status grossly normal Speech and Movement: speech and movement normal Mood: congruent mood Affect: normal affect Attitude: cooperative Thought Process: normal Thought Content: normal Judgment: judgment good Objective Labs Result Diagrams: 07/08/22 12:33 Labs: Laboratory Results - last 24 hr 07/08/22 07/08/22 07/08/22 12:33 12:33 12:50 WBC 8.5 RBC 3.93 L Hgb 11.5 L Hct 33.7 L MCV 85.8 MCH 29.2 MCHC 34.0 RDW 14.7 Plt Count 240 Neut % (Auto) 69.9 Lymph % (Auto) 21.1 L [place] % (Auto) 7.4 Eos % (Auto) 1.3 L Baso % (Auto) 0.3 Neut # (Auto) 5900 Lymph # (Auto) 1800 [place] # (Auto) 600 Eos # (Auto) 100 Baso # (Auto) 0 Uric Acid 3.8 Total Bilirubin 0.3 Conjugated Bilirubin 0.0 Unconjugated Bilirubin 0.4 AST 13 L ALT 14 Alkaline Phosphatase 83 Total Protein 7.4 Albumin 3.7 Globulin 3.7 Albumin/Globulin Ratio 1.0 U Random Total Protein 20 H Urine Creatinine 114.1 Protein/Creatinin Ratio 0.17 Evaluation Evaluation Variability: Moderate (11-25) monitor accelerations: Present Monitor Decelerations: Absent Category of Tracing: Reactive Status: Category l Diagnosis, Plan/Disposition Final Diagnosis (1) : Status: Acute (2) Elevated BP without diagnosis of hypertension: Status: Acute Plan/Disposition Plan: Discussed findings with Eliza Au CNM via phone. In the presence of reassuring FHT and absence of BP elevation and/or lab abnormalities c/w PEC, will discharge to home and the continued care of her supervisor intermediates. Advised her CNM that we will gladly see the patient again at any time as needed should she develop elevated BP's or other complications necessitating hospital care/delivery. OB Disposition: home
== END 2022-07-08 15:10 | disposition home or self-care (01) ==
LOC: LABOR 12:21 → OB 07-09 16:42
PROVIDERS: PCP Family Medicine; Referring Provider Obstetrics & Gynecology; Visit Provider Obstetrics & Gynecology
DX: O26.893 Other specified pregnancy related conditions, third trimester (principal); R03.0 Elevated blood-pressure reading, without diagnosis of hypertension; Z3A.37 37 weeks gestation of pregnancy
CPT/HCPCS: 36415; 59025; 59050; 80076; 82570; 84156; 84550; 85025; G0378; G0379

== ENCOUNTER 2023-01-31 17:17 | Emergency (ER) | payer OTHER, MEDICAID, SELFPAY ==
[2023-01-31 17:34] VITALS: BP 128/75; PULSE 97; RESP 16; TEMP 36.6; O2SAT 96; BMI 51.5
--- NOTE | 2023-01-31 17:40 | DI.RAD.S_ITS ---
PROCEDURE: XR ANKLE RT MIN 3V INDICATIONS: Injury TECHNIQUE: 3 views of the ankle were acquired. COMPARISON: [facility], , ANKLE 3 VIEWS LEFT, 07/28/2015, 15:59. FINDINGS: Bones: No fractures or dislocations. Ankle mortise is normally aligned. Small bony spur along the anterior talus. No suspicious bony lesions. Soft tissues: No tibiotalar joint effusion. Achilles tendon appears normal. IMPRESSION: 1. No fractures. Dictated by: Celi French M.D. on 01/31/2023 at 18:25 Approved by: Celi French M.D. on 01/31/2023 at 18:26
--- NOTE | 2023-01-31 19:03 | ED.LOWEXIN ---
HPI - Extremity Injury (Lower) <Abdiel Lipscomb PA-C - Last Filed: 01/31/23 20:03> General Chief Complaint: Extremity Injury, Lower Stated Complaint: R Ankle pain after stepping in hole Time Seen by Provider: 01/31/23 18:03 Source: patient Mode of arrival: Wheelchair History of Present Illness HPI Narrative: 32-year-old female presents to the ED status post a right ankle injury sustained just prior to arrival. Patient states that she stepped into us sizable whole by accident, causing her ankle to twist. Patient states she has been unable to bear weight and walk on it since then. Patient denies numbness, tingling, weakness. Related Data Home Medications Medication Instructions Recorded Confirmed levothyroxine 100 mcg tablet 100 mcg PO DAILY 05/17/19 05/21/19 (Levoxyl) liothyronine 25 mcg tablet 25 mcg PO DAILY 05/17/19 05/21/19 (Cytomel) Previous Rx's Medication Instructions Recorded docusate sodium 250 mg capsule 250 mg PO DAILY #60 caps 05/22/19 hydrocodone 5 mg-acetaminophen 325 1 tab PO Q4HR PRN Pain, Moderate 05/22/19 mg tablet (4-6) #20 tabs ibuprofen 600 mg tablet 600 mg PO Q6HR PRN Pain, Mild 05/22/19 (1-3) #60 tabs Allergies Allergy/AdvReac Type Severity Reaction Status Date / Time No Known Drug Allergies Allergy Verified 01/31/23 17:34 Review of Systems <Abdiel Lipscomb PA-C - Last Filed: 01/31/23 20:03> Review of Systems ROS Unobtainable: All systems reviewed & are unremarkable except as noted in HPI and below Constitutional Constitutional: Denies chills, Denies fatigue, Denies fever(s), Denies frequent falls, Denies lethargy and Denies weakness Eyes Eyes: Denies change in vision, Denies eye discharge, Denies irritation and Denies loss of vision ENT Ears, Nose, Mouth, and Throat: Denies change in voice, Denies dizziness, Denies neck pain, Denies sore throat and Denies throat swelling Cardiovascular Cardiovascular: Denies chest pain, Denies irregular heart rhythm, Denies lightheadedness, Denies palpitations, Denies dyspnea, Denies dyspnea on exertion and Denies orthopnea Respiratory Respiratory: Denies cough, Denies dyspnea, Denies dyspnea on exertion and Denies wheezing Gastrointestinal Gastrointestinal: Denies abdominal pain, Denies change in bowel habits, Denies diarrhea, Denies nausea and Denies vomiting Genitourinary Genitourinary: Denies hematuria, Denies flank pain, Denies urinary incontinence and Denies urinary urgency Musculoskeletal Musculoskeletal: Denies back pain, Denies muscle weakness, Denies neck pain, Denies numbness and Denies tingling Comments: Right ankle pain Integumentary/Breasts Skin/Breast: Denies pruritus, Denies erythema, Denies rash and Denies wounds Neurologic Neurologic: Denies behavioral changes, Denies confusion, Denies dizziness, Denies frequent falls, Denies loss of vision, Denies numbness, Denies tingling and Denies weakness Psychiatric Psychiatric: Denies anxiety, Denies behavioral changes, Denies confusion, Denies depression, Denies homicidal ideation and Denies suicidal ideation Endocrine Endocrine: Denies fatigue, Denies flushing and Denies palpitations Hematologic/Lymphatic Hematologic/Lymphatic: Denies easy bruising Allergic/Immunologic Allergic/Immunologic: Denies urticaria, Denies throat swelling and Denies wheezing Patient History <Abdiel Lipscomb PA-C - Last Filed: 01/31/23 20:03> Medical History No chronic problems Surgical History Status post cholecystectomy Social History Smoking Status: Never smoker Smoking Status: Never smoker alcohol intake frequency: 0-2 drinks per day Substance Use Type: does not use Exam <Abdiel Lipscomb PA-C - Last Filed: 01/31/23 20:03> Narrative Exam Narrative: Const General:?cooperative, healthy appearing and comfortable [facility] Head:?normal to inspection Ears:?hearing grossly normal bilaterally Nose:?external nose normal Face and sinus:?normal facial exam and sinuses nontender Mouth:?oral mucosae normal Throat:?posterior oropharynx normal Eyes General:?appearance normal, both eyes and all related structures Neck Neck:?normal visual inspection and no lymphadenopathy noted Resp Effort & Inspection:?normal respiratory effort Auscultation:?clear to auscultation bilaterally Cardio Rate:?regular rate Rhythm:?regular rhythm Musculoskeletal Right ankle swelling, tenderness to palpation. There is also some tenderness to the base of the 5th metatarsal and base of 2nd metatarsal. Range of motion limited by pain. Strength and sensation intact. Patient is neurovascularly intact. No bruising, no deformities. Neuro General:?patient alert, patient awake and patient oriented x3 Initial Vital Signs Initial Vital Signs: Vital Signs Temperature 98 F 01/31/23 17:34 Pulse Rate 97 H 01/31/23 17:34 Respiratory Rate 16 01/31/23 17:34 Blood Pressure 128/75 01/31/23 17:34 Pulse Oximetry 96 01/31/23 17:34 Oxygen Delivery Method Room Air 01/31/23 17:34 <Akilah Escobar DO - Last Filed: 02/01/23 03:35> Initial Vital Signs Initial Vital Signs: Vital Signs Temperature 98 F 01/31/23 17:34 Pulse Rate 97 H 01/31/23 17:34 Respiratory Rate 16 01/31/23 17:34 Blood Pressure 128/75 01/31/23 17:34 Pulse Oximetry 96 01/31/23 17:34 Oxygen Delivery Method Room Air 01/31/23 17:34 Course <Abdiel Lipscomb PA-C - Last Filed: 01/31/23 20:03> Orders Ordered: ED Orders 01/31/23 19:09 XR foot RT min 3V Stat Discontinued Medications Ketorolac Tromethamine (Ketorolac 30 Mg/Ml Vial) 15 mg IV NOW ONE Stop: 01/31/23 19:11 Last Admin: 01/31/23 19:17 Dose: 15 mg Documented By: NR Vital Signs Vital signs: Vital Signs - 8 hr 01/31/23 21:05 Pulse Rate 98 H Respiratory Rate 18 Blood Pressure 124/78 Pulse Oximetry 99 Oxygen Delivery Method Room Air <DO Samuel Neff Last Filed: 02/01/23 03:35> Orders Ordered: ED Orders 01/31/23 19:09 XR foot RT min 3V Stat Discontinued Medications Ketorolac Tromethamine (Ketorolac 30 Mg/Ml Vial) 15 mg IV NOW ONE Stop: 01/31/23 19:11 Last Admin: 01/31/23 19:17 Dose: 15 mg Documented By: NR Vital Signs Vital signs: Vital Signs - 8 hr 01/31/23 21:05 Pulse Rate 98 H Respiratory Rate 18 Blood Pressure 124/78 Pulse Oximetry 99 Oxygen Delivery Method Room Air MDM - Extremity Injury (Lower) <Abdiel Lipscomb PA-C - Last Filed: 01/31/23 20:03> [facility] Narrative Medical decision making narrative: 32-year-old female presents to the ED status post a right ankle injury sustained just prior to arrival. Will obtain ankle and foot x-rays to rule out fracture/dislocation. Will give ketorolac for pain. Will reassess. Ankle x-ray with no acute findings. Foot x-rays pending at this time. Patient is signed out to Dr. Akilah Escobar. <Akilah Escobar DO - Last Filed: 02/01/23 03:35> Imaging Data Extremity x-ray #1: Radiologist's Impression: PROCEDURE:? XR ANKLE RT MIN 3V ? INDICATIONS:? Injury ? TECHNIQUE:? 3 views of the ankle were acquired.? ? COMPARISON:? [facility], , ANKLE 3 VIEWS LEFT, 07/28/2015, 15:59. ? FINDINGS:? ? Bones:? No fractures or dislocations.? Ankle mortise is normally aligned.? Small bony spur along the anterior talus.? No suspicious bony lesions.? ? Soft tissues:? No tibiotalar joint effusion.? Achilles tendon appears normal.? ? ? IMPRESSION:? ? 1. No fractures. ? Dictated by: Celi French M.D. on 01/31/2023 at 18:25 ? ? Extremity x-ray #2: Radiologist's Impression: PROCEDURE:? XR FOOT RT MIN 3V ? INDICATIONS:? fall ? TECHNIQUE:? Three views of the foot were acquired.? ? COMPARISON:? None. ? FINDINGS:? ? Bones:? No acute fractures or dislocations.? No suspicious bony lesions.? ? Soft tissues:? Soft tissue edema is seen throughout the ankle and foot. ? IMPRESSION:? No acute osseous abnormality.? If clinical suspicion and/or symptoms persist, additional imaging with repeat plain films, or advanced imaging (e.g. CT, MRI) may be helpful for further assessment. ? ? ? Approved by: Siddharth Burns M.D. on 01/31/2023 at 20:38? [facility] Narrative Medical decision making narrative: 32-year-old female presents to the ED status post a right ankle injury sustained just prior to arrival. Will obtain ankle and foot x-rays to rule out fracture/dislocation. Will give ketorolac for pain. Will reassess. Ankle x-ray with no acute findings. Foot x-rays pending at this time. Patient is signed out to Dr. Akilah Escobar. Patient signed out to me I have seen evaluated patient myself. Tender ankle unable to bear weight x-rays are negative. Consistent with ankle sprain. Requesting crutches. Discharge Plan Departure Patient Disposition: Home Clinical Impression: Ankle sprain Instructions: Ankle Sprain Activity Restrictions/Additional Instructions: *You have been diagnosed with ankle sprain *What to do: At this time increase weight-bearing as tolerated use crutches as needed. Elevate and ice. *Continue to take medications as directed Tylenol 1000 mg every 6 hours if needed for dxph-am-xnptnerm pain Motrin 600 mg every 6 hours if needed for krxp-og-sljzryjz pain *Follow up with your primary care provider in 2-3 days or call [phone] *Return to ER if you should have increased pain swelling or any new, worsening or concerning symptoms Prescriptions: No Action levothyroxine [Levoxyl] 100 mcg tablet 100 mcg PO DAILY liothyronine [Cytomel] 25 mcg tablet 25 mcg PO DAILY docusate sodium 250 mg Capsule 250 mg PO DAILY Qty: 60 0RF hydrocodone-acetaminophen 5-325 mg Tablet 1 tab PO Q4HR PRN (Reason: Pain, Moderate (4-6)) Qty: 20 0RF ibuprofen 600 mg Tablet 600 mg PO Q6HR PRN (Reason: Pain, Mild (1-3)) Qty: 60 0RF Referrals: Kamryn Reese MD [Primary Care Provider] - Stand Alone Forms: Patient Portal/API <Akilah Escobar DO - Last Filed: 02/01/23 03:35> Cosign ED Attending Coskandyature Attestation: I was immediately available in the department for consultation. Documentation has been reviewed.
--- NOTE | 2023-01-31 19:09 | DI.RAD.S_ITS ---
PROCEDURE: XR FOOT RT MIN 3V INDICATIONS: fall TECHNIQUE: Three views of the foot were acquired. COMPARISON: None. FINDINGS: Bones: No acute fractures or dislocations. No suspicious bony lesions. Soft tissues: Soft tissue edema is seen throughout the ankle and foot. IMPRESSION: No acute osseous abnormality. If clinical suspicion and/or symptoms persist, additional imaging with repeat plain films, or advanced imaging (e.g. CT, MRI) may be helpful for further assessment. Approved by: Siddharth Burns M.D. on 01/31/2023 at 20:38
[2023-01-31] MEDS: KETOROLAC 30 MG/ML VIAL 15 MG IV (19:17)
[2023-01-31 21:05] VITALS: BP 124/78; PULSE 98; RESP 18; O2SAT 99
== END 2023-01-31 21:05 | disposition home or self-care (01) ==
PROVIDERS: Emergency Provider Emergency Medicine; PCP Family Medicine
DX: S93.401A Sprain of unspecified ligament of right ankle, initial encounter (principal); X50.1XXA Overexertion from prolonged static or awkward postures, initial encounter
CPT/HCPCS: 73610; 73630; 96374; 99283; 99284; J1885

== ENCOUNTER → 2023-04-14 15:05 | Outpatient (CLI) | payer OTHER, MEDICAID, SELFPAY ==
--- NOTE | 2023-04-14 | DI.RAD.S_ITS ---
PROCEDURE: XR ANKLE RT MIN 3V INDICATIONS: SPRAIN TECHNIQUE: 3 views of the ankle were acquired. COMPARISON: [facility], CR, XR ANKLE RT MIN 3V, 01/31/2023, 17:49. FINDINGS: Bones: No fractures or dislocations. Ankle mortise is normally aligned. No suspicious bony lesions. Small plantar calcaneal bone spur. Small anterior talar beak. Soft tissues: No tibiotalar joint effusion. Achilles tendon appears normal. Soft tissue swelling is noted and ligamentous injury cannot be excluded. IMPRESSION: No fracture. No osseous lesion. If symptoms and/or clinical suspicion for pathology persists, further assessment with repeat radiographs (7-10 days) or advanced imaging (e.g. CT, MRI or bone scan) should be considered. Dictated by: Lashon Quijano MD, PhD on 04/14/2023 at 15:21 Approved by: Lashon Quijano MD, PhD on 04/14/2023 at 15:22
== END ==
PROVIDERS: PCP Family Medicine; Referring Provider Family Medicine; Visit Provider Family Medicine
DX: S93.491D Sprain of other ligament of right ankle, subsequent encounter (principal)
CPT/HCPCS: 73610

== ENCOUNTER → 2023-11-29 17:49 | Outpatient (ROUT) | payer OTHER, MEDICAID, SELFPAY | PROVIDERS: PCP Family Medicine; Visit Provider Family Medicine | DX: R10.9 Unspecified abdominal pain (principal); R31.9 Hematuria, unspecified | CPT/HCPCS: 87077; 87086; 87147 ==

== ENCOUNTER → 2024-03-09 12:04 | Outpatient (CLI) | payer OTHER, MEDICAID, SELFPAY ==
--- NOTE | 2024-03-09 12:07 | DI.RAD.S_ITS ---
PROCEDURE: XR CHEST 2V INDICATIONS: COUGH TECHNIQUE: 2 views of the chest were acquired. COMPARISON: None. FINDINGS: Surgical changes and devices: None. Lungs and pleura: Lungs are clear. No pleural effusions or pneumothorax. Mediastinum: Mediastinal contours are normal. Heart size is normal. Bones and chest wall: No suspicious bony abnormalities. Soft tissues appear unremarkable. IMPRESSION: No acute cardiopulmonary abnormality is seen. Dictated by: Joaquin Navarro M.D. on 03/09/2024 at 14:15 Approved by: Joaquin Navarro M.D. on 03/09/2024 at 14:16
== END ==
PROVIDERS: PCP Family Medicine; Referring Provider Family Medicine; Visit Provider Family Medicine
DX: J02.9 Acute pharyngitis, unspecified (principal); J36 Peritonsillar abscess; R05.1 Acute cough
CPT/HCPCS: 71046; 87070; 87147

== ENCOUNTER → 2024-03-09 13:46 | Outpatient (ROUT) | payer OTHER, MEDICAID, SELFPAY | PROVIDERS: PCP Family Medicine; Visit Provider Family Medicine | DX: J02.9 Acute pharyngitis, unspecified (principal); J36 Peritonsillar abscess | CPT/HCPCS: 87070 ==

== ENCOUNTER → 2025-04-04 13:46 | Outpatient (CLI) | payer OTHER, SELFPAY ==
--- NOTE | 2025-04-04 13:48 | DI.CT.S_ITS ---
PROCEDURE: CT IVP A/P W/WO INDICATIONS: RUQ ABD PAIN TECHNIQUE: Optional 5 mm thick noncontrast images acquired from the diaphragm to the symphysis pubis. After the administration of intravenous contrast, 5 mm thick images acquired from the diaphragm to the symphysis pubis after a 10-minute delay. 2 mm thick coronal and sagittal reformats were then performed of the kidneys and ureters. For radiation dose reduction, the following was used: automated exposure control, adjustment of mA and/or kV according to patient size. COMPARISON: None. FINDINGS: Image quality: Diagnostic. Kidneys and Ureters: Both kidneys are normal in size, without hydronephrosis or perinephric fat stranding. There are a few nonobstructing right-sided renal stones measuring up to 9 mm in size and approximately 650 Hounsfield units in density. Bilateral ureters are normal in course and caliber without ureteral stones. Left kidney is normal in appearance. There is normal bilateral renal enhancement. Renal calyces appear normal in morphology when filled with contrast. Opacified portions of both ureters demonstrate normal caliber Bladder: Bladder wall thickness is normal. No calcified bladder stones. OTHER: Lower chest: Unremarkable. Liver: No solid mass. Gallbladder: Surgically absent Biliary ducts: No biliary dilation. Pancreas: No ductal dilation. Spleen: Size is within normal limits. Adrenal Glands: No adrenal nodules. Stomach and Bowel: Normal colonic caliber, without significant wall thickening. Scant colonic diverticula without acute inflammation. No evidence for small bowel obstruction or associated inflammatory changes. Normal appendix. Peritoneum: No abnormal intraperitoneal fluid. No free air. Ventral Wall: No hernia. Abdominal Nodes: No retroperitoneal or mesenteric adenopathy by size criteria. Vessels: Aorta and inferior vena cava are normal in size. PELVIS: Pelvic Organs: Unremarkable. Pelvic Nodes: No enlarged lymph nodes. Miscellaneous: No inguinal hernias are seen. Bones: No aggressive osseous abnormality. IMPRESSION: Nonobstructing right-sided renal stones measuring up to 9 mm in size and approximately 650 Hounsfield units in density. No perinephric stranding. No hydronephrosis or hydroureter. No ureteral stone. Normal appearance of the left kidney and urinary bladder. Other chronic/non-acute findings as above. Dictated by: Vinny Sheridan M.D. on 04/04/2025 at 17:25 Approved by: Vinny Sheridan M.D. on 04/04/2025 at 17:36
== END ==
LOC: CT 13:47
PROVIDERS: PCP Family Medicine; Referring Provider Family Medicine; Visit Provider Family Medicine
DX: R10.11 Right upper quadrant pain (principal); R31.29 Other microscopic hematuria; N20.0 Calculus of kidney; Z90.49 Acquired absence of other specified parts of digestive tract
CPT/HCPCS: 74178; Q9967

== ENCOUNTER → 2025-04-08 08:35 | Outpatient (CLI) | payer OTHER, SELFPAY ==
--- NOTE | 2025-04-08 08:36 | DI.US.S_ITS ---
PROCEDURE: US ABDOMEN LIMITED INDICATIONS: DIARRHEA TECHNIQUE: Real-time scanning was performed of the abdominal and retroperitoneal organs, with image documentation. COMPARISON: [facility], , US ABDOMEN LIMITED, 10/21/2018, 22:14. FINDINGS: Liver: The liver demonstrates diffusely increased echotexture without focal abnormalities consistent with chronic hepatocellular disease/hepatic steatosis. Gallbladder: Surgically absent Biliary ducts: Intrahepatic bile ducts are non-dilated. Extrahepatic bile duct caliber measures 5 mm. Normal is 6-7 mm or less in diameter, or 10 mm or less post-cholecystectomy. Pancreas: Visualized portions of the pancreas are sonographically normal. Miscellaneous: No free abdominal fluid. IMPRESSION: The liver demonstrates diffusely increased echotexture without focal abnormalities consistent with chronic hepatocellular disease/hepatic steatosis. Status post cholecystectomy. Dictated by: Vinny Sheridan M.D. on 04/08/2025 at 11:53 Approved by: Vinny Sheridan M.D. on 04/08/2025 at 11:54
== END ==
LOC: US 08:35
PROVIDERS: PCP Family Medicine; Referring Provider Family Medicine; Visit Provider Family Medicine
DX: R19.7 Diarrhea, unspecified (principal); R10.11 Right upper quadrant pain; Z90.49 Acquired absence of other specified parts of digestive tract
CPT/HCPCS: 76705

== ENCOUNTER → 2025-05-10 19:41 | Outpatient (CLI) | payer OTHER, SELFPAY ==
--- NOTE | 2025-05-10 19:42 | DI.MRI.S_ITS ---
PROCEDURE: MR THORACIC SPINE WO CON INDICATIONS: Acute right sided thoracic back pain TECHNIQUE: Noncontrast sagittal T1 spine echo and T2 fast spin echo, sagittal STIR, and T2 fast spin echo through the thoracic spine. COMPARISON: None. FINDINGS: Image quality: Excellent. Alignment and Curvature: There is normal bony alignment. Bone Marrow: Marrow is of normal overall signal. No acute vertebral body compression fractures. Spinal Cord: Visualized spinal cord is normal in size and signal. Paraspinous Soft Tissues: No paravertebral masses. Miscellaneous: T4-T5: Posterior ligamentous hypertrophy without significant canal stenosis. T6-T7: Moderately large right paracentral disc extrusion indenting on the right ventral cord. There is also epidural lipomatosis. There is resultant canal stenosis. T8-T9: Mild right paracentral disc protrusion without canal stenosis. No foraminal stenosis. T10-T11: Minimal right paracentral disc protrusion without canal stenosis. Facet hypertrophy. No foraminal stenosis. Reference sagittal image 8 of T2 series 6 and axial image 24 of T2 series 9. T11-T12: Bilateral facet hypertrophy. No canal stenosis. T12-L1: Shallow right paracentral disc protrusion with associated shallow superior disc extrusion without canal stenosis or foraminal stenosis. IMPRESSION: 1. A moderately large right paracentral disc extrusion at T6-T7 indents on the right ventral cord. There is also epidural lipomatosis. There is resultant canal stenosis. 2. Shallow disc protrusions at T8-T9, T10-T11, and T12-L1 without canal stenosis. 3. Facet arthropathy at T11-T12. Dictated by: Will Mantilla M.D. on 05/13/2025 at 8:17 Approved by: Will Mantilla M.D. on 05/13/2025 at 8:23
== END ==
LOC: MRI 19:41
PROVIDERS: PCP Family Medicine; Referring Provider Family Medicine; Visit Provider Family Medicine
DX: M47.814 Spondylosis without myelopathy or radiculopathy, thoracic region (principal); M51.24 Other intervertebral disc displacement, thoracic region; M48.04 Spinal stenosis, thoracic region
CPT/HCPCS: 72146

== ENCOUNTER → 2025-07-01 10:37 | Outpatient (CLI) | payer OTHER, SELFPAY ==
--- NOTE | 2025-07-01 10:40 | DI.RAD.S_ITS ---
PROCEDURE: XR SACRUM COCCYX MIN 2V
--- NOTE | 2025-07-01 10:40 | DI.RAD.S_ITS ---
PROCEDURE: XR LUMBAR SPINE 2-3V
--- NOTE | 2025-07-01 10:40 | DI.RAD.S_ITS ---
PROCEDURE: XR THORACIC SPINE 3V
== END ==
LOC: RAD 10:38
PROVIDERS: PCP Family Medicine; Referring Provider Family Medicine; Visit Provider Family Medicine
DX: M54.16 Radiculopathy, lumbar region (principal); M51.24 Other intervertebral disc displacement, thoracic region; M53.3 Sacrococcygeal disorders, not elsewhere classified; M62.830 Muscle spasm of back
CPT/HCPCS: 72072; 72100; 72220